=== PATIENT | female | born 1975 | race Two or more races ===

== ENCOUNTER 2016-10-28 12:33 | Emergency (ER) | payer OTHER ==
[~2016-10-28] VITALS: Ht 149.9 cm; Wt 61.2 kg
[2016-10-28 12:45] VITALS: BP 148/66
--- NOTE | 2016-10-28 13:14 | PHYS DOC ---
Past Medical History Past Medical History: No Pertinent History Past Surgical History: Alcohol Use: None Drug Use: None Adult General Chief Complaint Chief Complaint: LOWEREXTREMITY INJURY [facility] HPI Patient is a 41 year old female presents emergency department stating that she was at work when she was standing on a ladder that was 4 foot up off the ground when she tried to pull box off last her balance and fell. She states that she landed on the left side of her body. She is complaining of left hip thigh knee and tib-fib pain. She states that she was able to stand that she is unable to bear complete weight on the leg. She denies any numbness or tingling into the toes but she does state that the femur and knee area appear to be numb. Patient is [place]-speaking only family member at bedside is able to interpret for patient's care. Review of Systems Review of Systems Constitutional: Denies fever or chills [] Eyes: Denies change in visual acuity, redness, or eye pain [] HENT: Denies nasal congestion or sore throat [] Respiratory: Denies cough or shortness of breath [] Cardiovascular: No additional information not addressed in HPI [] GI: Denies abdominal pain, nausea, vomiting, bloody stools or diarrhea [] : Denies dysuria or hematuria [] Musculoskeletal: Denies back pain. Left hip, femur, knee and tib/fib pain and discomfort Integument: Denies rash or skin lesions [] Neurologic: Denies headache, focal weakness or sensory changes [] Current Medications Current Medications Current Medications Medications (Trade) Dose Ordered Sig/Toshia Start Time Stop Time Status Last Admin Dose Admin Acetaminophen/ Hydrocodone Bitart (Lortab 5/325) 1 tab 1X ONCE 10/28/16 13:15 10/28/16 13:16 DC 10/28/16 13:33 1 TAB Allergies Allergies Allergies Coded Allergies Type Severity Reaction Last Updated Verified No Known Drug Allergies 08/14/15 No Physical Exam Physical Exam Constitutional: Well developed, well nourished, no acute distress, non-toxic appearance. [] HENT: Normocephalic, atraumatic, bilateral external ears normal, oropharynx moist, no oral exudates, nose normal. [] Eyes: PERRLA, EOMI, conjunctiva normal, no discharge. [] Neck: Normal range of motion, no tenderness, supple, no stridor. [] Cardiovascular:Heart rate regular rhythm, no murmur [] Lungs & Thorax: Bilateral breath sounds clear to auscultation [] Skin: Warm, dry, no erythema, no rash. [] Back: No tenderness Extremities: Left hip, pelvis, femur, tib fib, and knee tenderness, no cyanosis , no clubbing, ROM intact, no edema. Patient with peripheral pulses 2+ cap refill brisk less than 2 seconds. Patient is able to fill the toes. Patient with numbness in the upper legs. Using or discoloration noted on the hip thigh knee or lower leg area. No redness noted either. Neurologic: Alert and oriented X 3, normal motor function, normal sensory function, no focal deficits noted. [] Psychologic: Affect normal, judgement normal, mood normal. [] Current Patient Data Vital Signs Vital Signs Date Time Temp Pulse Resp B/P Pulse Ox O2 Delivery O2 Flow Rate FiO2 10/28/16 13:33 18 Room Air 10/28/16 12:45 97.9 61 99 97.9 EKG EKG [] Radiology/Procedures Radiology/Procedures [] Course & Med Decision Making Course & Med Decision Making Pertinent Labs and Imaging studies reviewed. (See chart for details) X-rays were negative for any abnormalities. Patient will be discharged home with recommendations for ibuprofen 800 mg every 8 hours. We'll also recommended ice packs on 20 minutes off 20 minutes several times a day. Patient will also be encouraged to ambulate to help prevent stiffness. Patient will also be encouraged to follow-up with orthopedic as needed. Since symptoms to return back to emergency department as been provided. Patient agrees with discharge instructions treatment regimens and follow-up recommendations. All information was provided to family member who interpreted for the patient. [] Dragon Disclaimer Dragon Disclaimer This electronic medical record was generated, in whole or in part, using a voice recognition dictation system. Departure Departure Impression: Primary Impression: Contusion of multiple sites of left leg Disposition: HOME, SELF-CARE Condition: STABLE Referrals: NO PCP (PCP) Patient Instructions: Contusion, [id number], Muscle Strain, [id number] Additional Instructions: Activity as tolerated. Tylenol or ibuprofen for pain and discomfort. Ice packs on 20 minutes off 20 minutes several times a day. Elevation as much as possible. The more that you rest the more that your muscles are going to tighten and cause increased pain. Follow-up the primary care physician in the next week. Return back to emergency prior signs symptoms of become worse. FRANCIS GUPTA [employer] SERVICE CONSULTANT Oct 28, 2016 13:14
[2016-10-28] MEDS ORDERED: HYDROCODONE/APAP 5/325MG TABLET. PO ONE (13:15)
--- NOTE | 2016-10-28 13:33 | RAD ---
Left femur, 2 views, 10/28/2016: History: Fall, injury No fracture is identified. The soft tissues are unremarkable. IMPRESSION: No significant left femoral abnormality is detected. AP pelvis, 10/28/2016: No fracture or bony abnormality is detected. The hip joint spaces are well preserved with only mild marginal spurring. IMPRESSION: No acute pelvic abnormality is detected.
--- NOTE | 2016-10-28 13:35 | RAD ---
Left tibia and fibula, 2 views, 10/28/2016: History: Fall, injury Linear lucencies projected over the proximal tibia appear to be due to overlying soft tissue shadows. No fracture is identified. IMPRESSION: No acute bony abnormality is detected.
== END 2016-10-28 14:14 | disposition home or self-care (01) ==
LOC: ER 12:33 → MERGE 12:33 → ER 14:14
DX: S70.02XA Contusion of left hip, initial encounter (principal); S70.12XA Contusion of left thigh, initial encounter; S80.02XA Contusion of left knee, initial encounter; W11.XXXA Fall on and from ladder, initial encounter; Y93.89 Activity, other specified; Y92.89 Other specified places as the place of occurrence of the external cause; Y99.8 Other external cause status
CPT/HCPCS: 72170; 73552; 73590; 99284